=== PATIENT | female | born 1985 | race Caucasian/White ===

== ENCOUNTER 2020-08-18 11:47 | Emergency (ER) | payer MEDICAID ==
[~2020-08-18] VITALS: Ht 165.1 cm; Wt 114.8 kg
[2020-08-18 11:56] VITALS: Ht 165.1 cm; Wt 114.8 kg
[2020-08-18 15:00] VITALS: BP 128/79
== END 2020-08-18 15:00 | disposition home or self-care (01) ==
LOC: ED 11:47
DX: R07.89 Other chest pain (principal); J45.909 Unspecified asthma, uncomplicated; E11.9 Type 2 diabetes mellitus without complications
CPT/HCPCS: 82962